=== PATIENT | female | born 1945 | race Hispanic/Latino ===

== ENCOUNTER 2019-10-10 08:31 | Outpatient (CLI) | payer MEDICARE ==
--- NOTE | 2019-10-12 13:26 | XRay Report ---
CHEST 2 VIEWS INDICATION: URI, ACUTE. COMPARISON: None FINDINGS: Support devices: None. Heart: Within normal limits. Lungs/pleura: Mild emphysematous changes are suspected in the upper lobes. No infiltrate, pleural fl uid or pneumothorax. Additional findings: None. IMPRESSION: No acute findings. Mild emphysematous changes are suspected. Signer Name: Misael Rasheed Jr, MD Signed: 10/10/2019 9:13 AM Workstation Name: [id number]
== END 2019-10-10 08:32 | disposition home or self-care (01) ==
LOC: SPVIMAG 08:31
PROVIDERS: ATTEND Internal Medicine
DX: J06.9 Acute upper respiratory infection, unspecified (principal)
CPT/HCPCS: 71046